=== PATIENT | female | born 1975 | race Caucasian/White ===

== ENCOUNTER → 2021-08-31 | Day surgery (SDC) | payer OTHER ==
[~2021-08-31] VITALS: Ht 170.2 cm; Wt 74.8 kg
[~2021-08-31] MED LIST: BUPROPION XL150 MG PO; CLARITIN-D 121 EACH PO; FEOSOL325 M1 PO; IBUPROFEN800 M1 PO; SERTRALINE HCL100 MG PO
[2021-08-31 07:20] LABS: HCG (URINE) SCREEN NEGATIVE (NEGATIVE)
== END | disposition home or self-care (01) ==
LOC: FAS 06:50
PROVIDERS: Obstetrics & Gynecology
DX: N93.9 Abnormal uterine and vaginal bleeding, unspecified (principal); L72.3 Sebaceous cyst; D50.0 Iron deficiency anemia secondary to blood loss (chronic); N84.0 Polyp of corpus uteri; F41.9 Anxiety disorder, unspecified; F32.A Depression, unspecified; Z88.0 Allergy status to penicillin; Z79.899 Other long term (current) drug therapy
CPT/HCPCS: 84703; J1100; J1170; J1885; J2250; J2405; J2704; J3010; J7120